=== PATIENT | female | born 1990 | race Two or more races ===

== ENCOUNTER 2017-09-07 10:44 | Inpatient (IN) | payer OTHER ==
[2017-09-07] VITALS (8 sets, daily range): BP systolic 99–127; BP diastolic 52–78
[~2017-09-07] VITALS: Ht 160 cm; Wt 99.8 kg
--- NOTE | 2017-09-07 | NUR ---
WANTS TO EAT, INFORMED PATIENT THAT MD ORDER IS NPO. Addendum: 09/08/17 at 0310 by Kathy Naidu LVN ERROR:WRONG ENTRY
[~2017-09-07 10:44] MED LIST: DEXAMETHASONE 4 MG/ML VIAL IVP ONE; GLYCOPYRROLATE 0.2 MG/ML VIAL IV ONE; ONDANSETRON 4 MG/2 ML VIAL IVP ONE; PHENYLEPHRINE 10 MG/ML VIAL IV ONE
--- NOTE | 2017-09-07 10:53 | NUR ---
Pt ambulated to bed 8.
--- NOTE | 2017-09-07 10:54 | NUR ---
Report given to Figueroa JOSE.
--- NOTE | 2017-09-07 10:58 | NUR ---
PT C/O LOWER ABD PAIN AND ONE EPISODE OF VOMITTING SINCE THIS MORNING. DENEIS URINARY PAIN, REPORTS NORMAL EATING AND DRINKING HABBITS. ABD SOFT AND NONTENDER TO PALPATION. NAD NOTED/STATED OTHERWISE, PLACED ON ALL MONITORS, VSS. PENDING MD THORNTON
[2017-09-07] MEDS ORDERED: NACL 0.9% 1,000 ML IV SCH (11:46)
[2017-09-07] MEDS ORDERED: KETOROLAC 30 MG/ML VIAL IVP ONE ×2 (11:50→17:07)
[2017-09-07] MEDS ORDERED: HYDROmorphone PFS 2 MG/ML SYR IVP ONE (11:50)
[2017-09-07] MEDS ORDERED: GLYCOPYRROLATE 0.2 MG/ML VIAL IV ONE (11:50)
[2017-09-07] MEDS ORDERED: METOCLOPRAMIDE 10 MG/2 ML INJ VIAL IVP ONE (11:50)
[2017-09-07 12:09] LABS: APPEARANCE,URINE CLEAR (CLEAR); BILIRUBIN,URINE NEGATIVE (NEGATIVE); BLOOD, URINE NEGATIVE (NEGATIVE); COLOR,URINE YELLOW (YELLOW); LEUKOCYTE ESTERASE ,URINE NEGATIVE (NEGATIVE); NITRITE, URINE NEGATIVE (NEGATIVE); PH,URINE 5.5 (5.0-9.0); UGLUCOSE NEGATIVE (NEGATIVE)
[2017-09-07 12:11] LABS: BASOPHILS % (AUTO) 0.1 % (0.0-2.0); EOSINOPHILS # (AUTO) 0.2 K/uL (0-0.4); EOSINOPHILS % (AUTO) 1.2 % (0.0-4.0); HEMATOCRIT 38.1 % (36-48); HEMOGLOBIN 12.4 g/dL (12.0-16.0); LYMPHOCYTES # (AUTO) 1.4 K/uL (2.5-16.5); LYMPHOCYTES % (AUTO) 9.5 % (20.5-51.1); MEAN CORPUSCULAR HEMOGLOBIN 27 pg (27-31); MEAN CORPUSCULAR HGB CONC 33 g/dL (33-37); MEAN CORPUSCULAR VOLUME 83.1 fL (80-94); MONOCYTES # (AUTO) 0.6 K/uL (0.8-1.0); MONOCYTES % (AUTO) 4.1 % (1.7-9.3); NEUTROPHILS # (AUTO) 12.7 K/uL (1.8-7.7); NEUTROPHILS % (AUTO) 85.1 % (42.2-75.2); PLATELET COUNT (AUTO) 399 K/uL (140-450); RED BLOOD CELL COUNT(AUTO) 4.59 MIL/uL (4.20-5.40)
[2017-09-07 12:16] LABS: ANION GAP 15.2 (8-16); CARBON DIOXIDE 25.8 mmol/L (21-32); CREATININE 0.6 mg/dL (0.6-1.3)
[2017-09-07 12:18] LABS: RBC,URINE NONE SEEN /HPF (0-5); WBC,URINE 0-5 (RARE) /HPF (0-5)
--- NOTE | 2017-09-07 12:20 | NUR ---
Patient taken to CT scan via wheelchair by tech.
[2017-09-07 12:23] LABS: ALBUMIN 3.7 g/dL (3.4-5.0); TOTAL BILIRUBIN 0.4 mg/dL (0.0-1.0)
--- NOTE | 2017-09-07 12:31 | NUR ---
Patient returned from CT scan. RN re-evaluating patient at bedside.
--- NOTE | 2017-09-07 13:15 | NUR ---
Patient appears to be resting comfortably in bed. Vital Signs within normal limits. Respirations even and unlabored. IVF NS STILL INFUSING.
--- NOTE | 2017-09-07 13:30 | NUR ---
DR YANES NOTIFIED OF CT RESULTS CALLED IN FROM [facility] --> EARLY ACUTE APPENDICITIS
--- NOTE | 2017-09-07 13:37 | NUR ---
DR YANES AT BEDSIDE SPEAKING WITH PT REGARDING CT RESULTS. PT IS RELAXED, RESPONDING IN FULL SENTENCES AND ASKING QUESTIONS.
[2017-09-07] MEDS ORDERED: PIPERACILLIN/TAZOBACTAM 4.5 GM in DEXTROSE 5% 100 ML IV ONE (13:45)
[2017-09-07] MEDS ORDERED: PIPERACILLIN/TAZOBACTAM 2.25 GM VIAL IV ONE (13:51)
[2017-09-07] MEDS ORDERED: ONDANSETRON 4 MG/2 ML VIAL IVP PRN ×2 (14:05→17:45)
[2017-09-07] MEDS ORDERED: MORPHINE SULFATE 2 MG/ML SYR IVP PRN (14:05)
[2017-09-07] MEDS ORDERED: LORazepam 2 MG/ML VIAL IVP PRN (14:05)
[2017-09-07] MEDS ORDERED: ACETAMINOPHEN 325 MG TAB PO PRN (14:05)
--- NOTE | 2017-09-07 14:45 | NUR ---
PT ARRIVED ON THE UNIT ON GURNEY WITH TWO ER NURSES. PT IS AWAKE AND ORIENTED. PT IS ACCOMPANIED BY SIGNIFICANT OTHER. PT IS ON ROOM AIR. IV L AC 20 G NS BOLUS. NO COMPLAINTS OF PAIN AT THIS TIME. SKIN INTACT. NO EDEMA NOTED. ABDOMEN IS SOFT AND ROUND. MRSA SCREENING DONE. WILL START ON ADMISSION.
--- NOTE | 2017-09-07 14:53 | NUR ---
Patient will be admitted to care of DR. CERVANTES. Admited to Med/Surg. Will go to [id number]. Belongings list completed. Report to LINDA JOSE.
--- NOTE | 2017-09-07 15:58 | NUR ---
DR MURRY IS HERE TO CONSULT ON PT. WILL AWAIT ORDERS.
[2017-09-07] MEDS: DEXT 5% / NACL 0.45% 1,000 ML IV SCH (16:40)
--- NOTE | 2017-09-07 16:50 | NUR ---
PT TAKEN BY TWO O/R NURSES FOR SURGERY. PT IN STABLE CONDITION.
[2017-09-07] MEDS ORDERED: DESFLURANE 240 ML BTL INH ONE (17:07)
[2017-09-07] MEDS ORDERED: ROCURONIUM 50 MG/5 ML VIAL IV ONE (17:07)
[2017-09-07] MEDS ORDERED: SUCCINYLCHOLINE CHLORIDE 200 MG/10 ML VIAL IV ONE (17:07)
[2017-09-07] MEDS ORDERED: fentaNYL 0.05 MG/ML VIAL ONE (17:15)
[2017-09-07] MEDS ORDERED: MIDAZOLAM 2 MG/2 ML VIAL ONE (17:15)
[2017-09-07] MEDS ORDERED: HYDROmorphone 1 MG/ML AMP IVP PRN (17:45)
[2017-09-07] MEDS: PIPER/TAZO 3.375GM/D5W PREMIX 50 ML IV SCH (18:00)
--- NOTE | 2017-09-07 18:50 | NUR ---
PT ARRIVED BACK ON FLOOR. BROUGHT BY TWO O/R NURSES. PT IS SLEEPY. VS SIGNS WITHIN NORMAL LIMITS. WILL CONTINUE TO MONITOR.
--- NOTE | 2017-09-07 19:05 | NUR ---
ENDORSED PT TO EIGHT SECTION BLOWER NURSE FOR CONTINUITY OF CARE. PT IN STABLE CONDITION.
--- NOTE | 2017-09-07 19:06 | NUR ---
RECD. RESTING IN BED, S/P LAP APPENDECTOMY, SLEEPING BUT EASILY WAKES UP WHEN NAME CALLED. IV OF LR INFUSING AT TKO, LEFT AC G20. 02 AT 2 LITERS VIA N/C, 02 SAT - 95-96%. INCISION IN THE ABDOMEN (3) COVERED WITH BAND AID DRESSING, ALL DRY AND INTACT. ON BILATERAL LEG SEQUENTIALS. REMINDED PATIENT TO DO DEEP BREATHING. PLAN OF CARE FOR THE SHIFT DISCUSSED. VERBALIZED UNDERSTANDING. AT THE BEDSIDE.
[2017-09-07] MEDS ORDERED: PIPERACILLIN/TAZOBACTAM 2.25 GM in DEXTROSE 5% 50 ML IV SCH (21:00)
--- NOTE | 2017-09-07 21:00 | NUR ---
ASSISTED TO GO OUT OF BED TO BR TO VOID. BACK TO BED AFTER VOIDING. AT THE BEDSIDE.
--- NOTE | 2017-09-07 22:00 | NUR ---
WANTS TO EAT, INFORMED PATIENT AND , MD ORDER IS STILL NPO. VS STABLE.
[2017-09-08] VITALS: BP 117/78
--- NOTE | 2017-09-08 | NUR ---
SLEEPING COMFORTABLY IN BED.
[2017-09-08] MEDS: PIPER/TAZO 3.375GM/D5W PREMIX 50 ML IV SCH ×3 (00:30→13:16)
[2017-09-08] MEDS: DEXT 5% / NACL 0.45% 1,000 ML IV SCH ×2 (03:25→13:15)
[2017-09-08 03:57] VITALS: BP 116/71
--- NOTE | 2017-09-08 05:30 | NUR ---
ASSISTED OUT OF BED TO GO TO BR TO VOID, BACK TO BED AFTER VOIDING, NOT PASSING GAS AND NO BM YET. ENCOURAGED TO AMBULATE MORE.
--- NOTE | 2017-09-08 07:03 | NUR ---
TOLERATED ALL ANTIBIOTICS GIVEN DURING SHIFT. CONDITION REMAIN STABLE. WILL ENDORSE TO AM NURSE FOR CONTINUITY OF CARE.
--- NOTE | 2017-09-08 07:17 | NUR ---
ENDORSED TO AM NURSES FOR CONTINUITY OF CARE.
--- NOTE | 2017-09-08 07:18 | NUR ---
RECEIVED REPORT FROM [facility] RN. STATES PAIN TOLERABLE AT THIS TIME. LUNG CTA IN ALL RAMOS. HEART RHYTHM REGULAR, S1 AND S2 NOTED. BOWEL SOUNDS HYPOACTIVE AT THIS TIME. S/P LAP APPENDECTOMY 09/07/17. LAP APPENDECTOMY INCISIONAL SITES COVERED WITH BANDAGES, WHICH ARE CLEAN, DRY, AND INTACT. DENIES FLATUS AT THIS TIME. DENIES BM. WILL ENCOURAGE PATIENT TO AMBULATE TODAY. IV SITE PATENT AND ASYMPTOMATIC. REVIEWED PLAN OF CARE WITH PATIENT, PATIENT VERBALIZED UNDERSTANDING OF PLAN. ALL SAFETY MEASURES ARE IN PLACE, WILL CONTINUE TO MONITOR.
[2017-09-08 07:38] LABS: BASOPHILS % (AUTO) 0.2 % (0.0-2.0); EOSINOPHILS % (AUTO) 0.2 % (0.0-4.0); HEMATOCRIT 34.1 % (36-48); HEMOGLOBIN 11.5 g/dL (12.0-16.0); LYMPHOCYTES # (AUTO) 1.5 K/uL (2.5-16.5); LYMPHOCYTES % (AUTO) 13.9 % (20.5-51.1); MEAN CORPUSCULAR HEMOGLOBIN 28 pg (27-31); MEAN CORPUSCULAR HGB CONC 34 g/dL (33-37); MEAN CORPUSCULAR VOLUME 82.8 fL (80-94); MONOCYTES # (AUTO) 0.5 K/uL (0.8-1.0); MONOCYTES % (AUTO) 4.4 % (1.7-9.3); NEUTROPHILS # (AUTO) 8.9 K/uL (1.8-7.7); NEUTROPHILS % (AUTO) 81.3 % (42.2-75.2); PLATELET COUNT (AUTO) 389 K/uL (140-450); RED BLOOD CELL COUNT(AUTO) 4.12 MIL/uL (4.20-5.40); RED CELL DISTRIBUTION WIDTH 14.5 % (11.6-13.7)
[2017-09-08 07:50] LABS: ANION GAP 14.2 (8-16); CARBON DIOXIDE 23.6 mmol/L (21-32); CREATININE 0.5 mg/dL (0.6-1.3); POTASSIUM 3.8 mmol/L (3.5-5.1); TOTAL BILIRUBIN 0.6 mg/dL (0.0-1.0)
[2017-09-08 08:00] VITALS: BP 106/69
--- NOTE | 2017-09-08 08:00 | NUR ---
PATIENT WALKING AROUND [facility] WITH FAMILY MEMBER AT BEDSIDE. NO DISTRESS NOTED. WILL CONTINUE TO MONITOR.
--- NOTE | 2017-09-08 11:00 | NUR ---
PATIENT IS SLEEPING WITH FAMILY MEMBER AT BEDSIDE. AROUSABLE BY VOICE. STATES THAT PAIN IS TOLERABLE AT THIS TIME. ALL SAFETY MEASURES IN PLACE, WILL CONTINUE TO MONITOR.
--- NOTE | 2017-09-08 13:16 | NUR ---
PATIENT IS RESTING COMFORTABLY IN BED WITH FAMILY MEMBER AT BEDSIDE. DENIES PAIN AT THIS TIME. SCHEDULED ANTIBIOTICS AND IVF HUNG AT THIS TIME. ALL SAFETY MEASURES IN PLACE, WILL CONTINUE TO MONITOR.
[2017-09-08] MEDS ORDERED: ACET-8386 PO (14:26)
--- NOTE | 2017-09-08 15:30 | NUR ---
PATIENT IS DRESSED, WITH FAMILY AT BEDSIDE, AND READY TO BE DISCHARGED TO HOME IN PRIVATE VEHICLE. DISCHARGE INSTRUCTIONS, INCLUDING INSTRUCTIONS TO FOLLOW UP WITH SURGEON AND PRIMARY CARE PHYSICIAN WITHIN A WEEK, AND NEW/ADD PRESCRIPTIONS WERE GIVEN TO PATIENT. PATIENT AND FAMILY MEMBER VERBALIZED UNDERSTANDING OF ALL DISCHARGE INSTRUCTIONS. PHOTO TAKEN OF ABDOMINAL INCISIONS. INCISIONS WERE CLEANED WITH NORMAL SALINE AND NEW BANDAGES APPLIED. INCISIONS ARE CLEAN AND DRY. ID BANDS REMOVED. IV CANNULA REMOVED WITH MINIMAL BLOOD LOSS AND LUMEN COMPLETELY INTACT. ALL PERSONAL BELONGINGS ARE WITH PATIENT. PATIENT IS IN STABLE CONDITION FOR DISCHARGE.
--- NOTE | 2017-09-09 09:02 | NUR ---
RETRO REVIEW ER REPORT, H&P, CONSULT AND OPERATIVE REPORT FAXED TO [facility] NO DISCHARGE SUMMARY FAXED TO [phone] PHONE RUTHY [phone]
== END 2017-09-08 15:30 | disposition home or self-care (01) | DRG 225 ==
LOC: MED 10:44 → MTU 14:05 → MMU 14:53
PROVIDERS: ADMIT Hospitalist; ATTEND Hospitalist
PROC: 0DTJ4ZZ Resection of Appendix, Percutaneous Endoscopic Approach (ICD-10-PCS; principal; 2017-09-07 17:00)
DX: K35.80 Unspecified acute appendicitis (principal); E66.01 Morbid (severe) obesity due to excess calories; Z83.79 Family history of other diseases of the digestive system; Z90.49 Acquired absence of other specified parts of digestive tract; Z68.39 Body mass index [BMI] 39.0-39.9, adult; D72.829 Elevated white blood cell count, unspecified; R16.0 Hepatomegaly, not elsewhere classified
CPT/HCPCS: 36415; 80053; 81001; 82150; 82374; 83690; 84703; 85025; 87081; 88304; 96374; 96375; 99285; J0330; J1100; J1170; J1885; J2250; J2270; J2370; J2405; J2543; J2765; J3010; J3490; J7030

== ENCOUNTER 2019-03-17 02:15 | Emergency (ER) | payer OTHER ==
[~2019-03-17] VITALS: Ht 160 cm; Wt 111.1 kg
[~2019-03-17 02:15] MED LIST changes: +ACET-8386 PO; -DEXAMETHASONE 4 MG/ML VIAL IVP ONE; -GLYCOPYRROLATE 0.2 MG/ML VIAL IV ONE; -ONDANSETRON 4 MG/2 ML VIAL IVP ONE; -PHENYLEPHRINE 10 MG/ML VIAL IV ONE
[2019-03-17 02:20] VITALS: BP 133/75
--- NOTE | 2019-03-17 02:20 | NUR ---
to bed # 06 ambulatory
--- NOTE | 2019-03-17 02:45 | NUR ---
SEEN AND EXAMINED BY URIAH WITH ORDERS AND CARRIED OUT.
[2019-03-17] MEDS ORDERED: methylPREDNISolone SS 125 MG in WATER STERILE 2 ML IM ONE (02:50)
[2019-03-17] MEDS ORDERED: diphenhydrAMINE 12.5 MG/5 ML UDC PO ONE (02:50)
[2019-03-17] MEDS ORDERED: WATER STERILE 10 ML MC ONE (02:56)
[2019-03-17] MEDS ORDERED: methylPREDNISolone SS 125 MG/2 ML VIAL ONE (02:56)
--- NOTE | 2019-03-17 03:03 | NUR ---
MEDICATED PER ERMDS ORDER, TOLERATED WELL.
[2019-03-17 03:55] VITALS: BP 121/78
--- NOTE | 2019-03-17 03:55 | NUR ---
Patient discharged with v/s stable. Written and verbal after care instructions given and explained. Patient alert, oriented and verbalized understanding of instructions. Ambulatory with steady gait. All questions addressed prior to discharge. ID band removed. Patient advised to follow up with PMD. Rx of NAPROSYN, 500MG. PRENISONE 50 MG given. Patient educated on indication of medication including possible reaction and side effects. Opportunity to ask questions provided and answered.
== END 2019-03-17 03:55 | disposition home or self-care (01) ==
LOC: MED 02:15
DX: K12.2 Cellulitis and abscess of mouth (principal); Z79.899 Other long term (current) drug therapy
CPT/HCPCS: 96372; 99283; J2930; Q0163